=== PATIENT | female | born 1965 | race Hispanic/Latino ===

== ENCOUNTER 2018-01-15 16:10 | Outpatient (CLI) | payer BC | END 2018-01-15 16:11 | disposition home or self-care (01) | LOC: BICRAD 16:10 | PROVIDERS: ATTEND Family Medicine | DX: R07.9 Chest pain, unspecified (principal) | CPT/HCPCS: 71046 ==

== ENCOUNTER 2018-11-29 16:23 | Emergency (ER) | payer BC ==
[2018-11-29 16:48] LABS: #Basophils 0.1 thou/uL (0.0-0.2); #Eosinphils 0.4 thou/uL (0.0-0.7); #Lymphocytes 2.8 thou/uL (1.20-3.40); #Monocytes 0.5 thou/uL (0.11-0.59); #Neutrophils 3.9 thou/uL (1.40-6.50); %Basophils 1.3 % (0.0-1.0); %Eosinophils 5.2 % (0.0-10.0); %Lymphocytes 35.7 % (21.0-51.0); %Monocytes 6.9 % (0.0-10.0); %Neutrophils 50.9 % (42.0-75.0); Hemoglobin 14.7 g/dL (12.0-16.0); Mean Corpuscular HGB CONC 33.7 g/dL (32.0-36.0); Mean Corpuscular Hemoglobin 29.8 pg (27.0-31.0); Mean Corpuscular Volume 88.4 fL (78.0-98.0); Mean Platelet Volume 7.2 fL (7.4-10.4); Platelet Count 299 thou/uL (130-400); Red Blood Cell (RBC) Count 4.94 mill/uL (4.20-5.40); White Blood Cell (WBC) Count 7.7 thou/uL (4.8-10.8)
--- NOTE | 2018-11-29 16:53 | RAD ---
CHEST 1 VIEW: Date: 11/29/18 HISTORY: Chest pain, heart racing. COMPARISON: 08/01/12. FINDINGS: Heart size is normal. The lungs are clear. IMPRESSION: No acute intrathoracic disease. POS: [facility]
[2018-11-29 17:07] LABS: ALT (SGPT) 50 U/L (8-55); AST (SGOT) 31 U/L (5-34); Albumin 4.3 g/dL (3.5-5.0); Alkaline Phosphatase 110 U/L (40-150); Anion Gap 14 mmol/L (10-20); BUN (Urea Nitrogen) 14 mg/dL (9.8-20.1); Bilirubin, Total 0.3 mg/dL (0.2-1.2); CK (CPK) 52 U/L (29-168); Calc. Creatinine Clearance 0 mL/min (70-130); Calcium 9.6 mg/dL (7.8-10.44); Carbon Dioxide 27 mmol/L (22-29); Chloride 102 mmol/L (98-107); Estimated GFR-MDRD 72; Globulin 3.2 g/dL (2.4-3.5); Glucose 100 mg/dL (70-105); Potassium 3.6 mmol/L (3.5-5.1); Protein, Total 7.5 g/dL (6.0-8.3); Sodium 139 mmol/L (136-145)
== END 2018-11-29 18:26 | disposition home or self-care (01) ==
LOC: ERS 16:23
DX: R00.2 Palpitations (principal); E11.9 Type 2 diabetes mellitus without complications; E03.9 Hypothyroidism, unspecified; Z79.899 Other long term (current) drug therapy
CPT/HCPCS: 36415; 71045; 80053; 82550; 84484; 85025; 93005; 94760

== ENCOUNTER 2023-06-30 14:42 | Emergency (ER) | payer BC, OTHER ==
[2023-06-30] MEDS ORDERED: Ibuprofen 800 MG TAB ONE (15:36)
== END 2023-06-30 16:30 | disposition home or self-care (01) ==
LOC: ERS 14:42
DX: S83.241A Other tear of medial meniscus, current injury, right knee, initial encounter (principal); E11.9 Type 2 diabetes mellitus without complications; E03.9 Hypothyroidism, unspecified; Z55.6 Problems related to health literacy; Z75.3 Unavailability and inaccessibility of health-care facilities; X50.1XXA Overexertion from prolonged static or awkward postures, initial encounter

== ENCOUNTER 2023-11-30 12:07 | Outpatient (CLI) | payer OTHER | END 2023-11-30 12:08 | disposition home or self-care (01) | LOC: BICMAMMO 12:07 | PROVIDERS: ATTEND Family Medicine | DX: Z12.31 Encounter for screening mammogram for malignant neoplasm of breast (principal); Z80.3 Family history of malignant neoplasm of breast | CPT/HCPCS: 77063; 77067 ==